=== PATIENT | female | born 1965 | race Two or more races ===

== ENCOUNTER 2019-01-07 10:01 | Emergency (ER) | payer MEDICAID, OTHER ==
[~2019-01-07] VITALS: Ht 170.2 cm; Wt 78.0 kg
[2019-01-07 10:08] VITALS: BP 135/76
[2019-01-07 11:18] LABS: Basophils # (auto) 0 uL; Basophils % (auto) 0.5 % (0.0-2.0); Eosinophils # (auto) 0.1 uL; Eosinophils % (auto) 1.6 % (0.0-7.0); Hematocrit 44.5 % (36.0-46.0); Lymphocytes # (auto) 1.5 uL; Lymphocytes % (auto) 26.7 % (10.0-50.0); Mean Corpuscular Hemoglobin 32.8 pg (28.0-32.0); Mean Corpuscular Hgb Conc. 33.7 g/dL (32.0-36.0); Mean Corpuscular Volume 97.1 fL (80.0-100.0); Monocytes # (auto) 0.5 uL; Monocytes % (auto) 9.3 % (0.0-12.0); Neutrophils # (auto) 3.4 uL; Neutrophils % (auto) 61.9 % (37.0-80.0); Platelet Count (auto) 247 10^3/uL (140-450); Red Blood Cells 4.59 10^6/uL (4.0-5.20); Red Cell Distribution Width 13.8 % (11.8-14.3); White Blood Cell 5.5 10^3/uL (4.4-10.8)
[2019-01-07 11:25] LABS: INR 0.97 (0.9-1.15); Partial Thromboplastin Time 28.2 sec (23.78-33.04); Prothrombin Time 10.4 sec (9.27-12.13)
[2019-01-07 11:31] LABS: Albumin 3.9 g/dL (3.4-5.0); Anion Gap 6 (5-15); Blood Urea Nitrogen 12 mg/dL (7-18); Calcium 9.2 mg/dL (8.5-10.1); Carbon Dioxide 29 mmol/L (21-32); Chloride 106 mmol/L (98-107); Glucose 92 mg/dL (74-106); Potassium 4.5 mmol/L (3.5-5.1); Sodium 141 mmol/L (136-145)
[2019-01-07 11:37] LABS: Alanine Aminotransferase 19 U/L (13-56); Alkaline Phosphatase 82 U/L (45-117); Aspartate Aminotransferase 13 U/L (15-37); BUN/Creatinine Ratio 13.3; Bilirubin, Total 0.4 mg/dL (0.2-1.0); GFR African American 84 mL/min; GFR Non-African American 70 mL/min; Total Protein 7.6 g/dL (6.4-8.2)
== END 2019-01-07 16:48 | disposition home or self-care (01) ==
LOC: ER 10:01
DX: R07.89 Other chest pain (principal); F17.210 Nicotine dependence, cigarettes, uncomplicated; F31.9 Bipolar disorder, unspecified; F41.9 Anxiety disorder, unspecified; Z88.6 Allergy status to analgesic agent
CPT/HCPCS: 36415; 71046; 80053; 83880; 84484; 85025; 85379; 85610; 85730; 93005

== ENCOUNTER 2025-04-03 07:46 | Emergency (ER) | payer MEDICAID ==
[~2025-04-03] VITALS: Ht 172.7 cm; Wt 81.6 kg
[2025-04-03 08:31] VITALS: BP 126/87; PULSE 78; RESP 16; TEMP 98.7; O2SAT 97
--- NOTE | 2025-04-03 08:53 | DVH ---
CLINICAL INDICATION: Trauma TECHNIQUE: 3 radiographic views of the right ankle were obtained. Comparison: None FINDINGS/IMPRESSION: There is no evidence of acute fracture or dislocation. The visualized joint space is well maintained. The alignment is anatomical. There is no radiopaque foreign body.
[2025-04-03] MEDS ORDERED: IBUP-1454 PO (09:15)
--- NOTE | 2025-04-03 09:16 | ED.PDOC ---
Musculoskeletal HPI Comments 59-year-old female presents for a possible fracture to the right lateral malleolus. Injury occurred yesterday after inverting her ankle on uneven pavement. Onset was sudden and pain is currently aggravated with ambulation and alleviated at rest, Still able to bear weight Denies previous surgeries to the ankle Denies redness or swelling around the ankle Denies fever chills night sweats nausea vomiting Chief Complaint: Lower Extremity Time Seen by MD: 08:18 Primary Care Provider: HANY Reviewed Notes: Nurses Notes, Medications, Allergies Allergies: Coded Allergies: Aspirin (Verified Allergy, Severe, 01/07/19) Information Source: Patient Mode of Arrival: Ambulatory Past Medical History PAST MEDICAL HISTORY: Anxiety, Depression Surgical History: Denies all surgeries Family History Family History: No family hx of HTN Social History Smoker: Cigarettes, Less Than 1 Pack/Day Alcohol: Rarely Drugs: Denies Drug Use Lives In: Home All Other Systems: Reviewed and Negative (PER HPI) Physical Exam General Appearance: No Apparent Distress, Normal HEENT: Normal ENT Inspection, Pharynx Normal, TMs Normal Neck: Full Range of Motion, Non-Tender, Normal, Normal Inspection Respiratory: Chest Non-Tender, Lungs Clear, No Accessory Muscle Use, No Respira tory Distress, Normal Breath Sounds Cardiovascular: No Edema, No JVD, No Murmur, No Gallop, Normal Peripheral Pulses, Regular Rate/Rhythm Breast Exam: Deferred Gastrointestinal: No Organomegaly, Non Tender, No Pulsatile Mass, Normal Bowel Sounds, Soft Genitalia: Deferred Pelvic: Deferred Rectal: Deferred Extremities: No calf tenderness, Normal capillary refill, Normal inspection, Normal range of motion, Non-tender, No pedal edema Musculoskeletal : Location: Right Extremity Location: Ankle (No swelling to the right and lateral malleolus. No ecchymosis. Plantar flexion dorsiflexion intact. No pain to the Achilles on palpation. DP 2+. Cap refill less than 3 seconds distal neuro sensation intact) Apperance: Normal Neurologic: Alert, plumber pipe fitting II-XII nml as Tested, No Motor Deficits, Normal Affect, Normal Mood, No Sensory Deficits Cerebellar Function: Normal Reflexes: Normal Skin: Dry, Normal Color, Warm Lymphatic: No Adenopathy Was a procedure done? Was a procedure done?: No Differential Diagnosis EXT Differential Diagnosis: Fracture, Sprain, Dislocation X-Ray, Labs, Meds, VS Vital Signs Date Time Temp Pulse Resp B/P (MAP) Pulse Ox O2 Delivery O2 Flow Rate FiO2 04/03/25 08:31 98.7 78 16 126/87 (100) 97 98.7 04/03/25 07:49 97.9 67 20 165/67 (99) 96 97.9 X-Ray, Labs, Meds, VS Comment Workup: XR Ankle Findings: No fracture or dislocation My wet read reveals no apparent acute bony abnormality, no FB, minimal to no soft tissue swelling and appropriate alignment. Presentation most consistent with Ankle Sprain. Patient does not currently demonstrate complications of sprain such as compartment syndrome, arterial or nerve injury. Differentials considered but not limited to: sprain, fracture, achilles tendon rupture, Maisonneuve fracture, distal fibula avulsion fracture, bi/tri-malleolar fracture, neurovascular compromise. The joint itself is non-irritable with ROM and there is no overlying redness and warmth to suggest injection. The Achilles and dorsiflexion tendon are non-tender and extension is intact. Disposition: Discharge. Supportive bracing provided. Patient was placed in an air-splint, WBAT. RICE. Strict return precautions and instructions to follow up with primary MD within 24-48 hours for further evaluation. May benefit from additional imaging such as stress views or MRI. Time of 1ST Reevaluation: 09:12 Reevaluation 1ST: Improved Patient Education/Counseling: Diagnosis, Treatment Family Education/Counseling: Diagnosis, Treatment Departure 1 Departure Time of Disposition: 09:13 Impression: Primary Impression: Ankle sprain Qualified Codes: S93.401A - Sprain of unspecified ligament of right ankle, initial encounter Disposition: HOME / SELF CARE / HOMELESS Condition: Stable e-Prescriptions Ibuprofen (Ibuprofen) 600 Mg Tab 1 TAB PO TIDP PRN for 10 Days, #30 TAB 0 Refills Prov: EDI AGUILAR NP 04/03/25 Critical Care Note Critical Care Time?: No Stability Stability form required: No Heart Score Heart Score: Heart Score Response (Comments) Value History N/A 0 EKG N/A 0 Age N/A 0 Risk Factors N/A 0 Troponin N/A 0 Total 0 EDI AGUILAR NP April 03, 2025 09:16
== END 2025-04-03 09:21 | disposition home or self-care (01) ==
LOC: ER 07:46
DX: S93.401A Sprain of unspecified ligament of right ankle, initial encounter (principal); F41.9 Anxiety disorder, unspecified; F32.A Depression, unspecified; F17.210 Nicotine dependence, cigarettes, uncomplicated; Z88.6 Allergy status to analgesic agent; X50.1XXA Overexertion from prolonged static or awkward postures, initial encounter; Y93.89 Activity, other specified; Y92.89 Other specified places as the place of occurrence of the external cause; Y99.8 Other external cause status
CPT/HCPCS: 73610